=== PATIENT | male | born 1980 | race Caucasian/White ===

== ENCOUNTER 2022-08-15 14:03 | Emergency (ER) | payer OTHER ==
[~2022-08-15] VITALS: Ht 175.3 cm; Wt 195.0 kg
[2022-08-15 14:35] VITALS: O2SAT 97
[2022-08-15] MEDS ORDERED: HYDROCODONE/APAP 7.5MG-325MG 1 EA TAB PO STA (14:37)
[2022-08-15] MEDS ORDERED: KETOROLAC TROMETHAMINE 30 MG/ML VIAL IM STA (14:37)
[2022-08-15] MEDS ORDERED: HYDROCODON-ACE1 EAC9 PO (15:55)
== END 2022-08-15 16:25 | disposition home or self-care (01) ==
LOC: ER 14:09
DX: S22.32XA Fracture of one rib, left side, initial encounter for closed fracture (principal); W18.39XA Other fall on same level, initial encounter; Y92.89 Other specified places as the place of occurrence of the external cause
CPT/HCPCS: 71101; 99283; J1885